=== PATIENT | male | born 1945 | race Two or more races ===

== ENCOUNTER 2023-06-29 06:32 | Day surgery (SDC) | payer OTHER, SELFPAY ==
[2023-06-29] VITALS (7 sets, daily range): BP systolic 12–171; BP diastolic 71–99; BMI 32.3
[2023-06-29] MEDS: NORMOSOL-R 1000 IV (08:15)
== END 2023-06-29 12:24 | disposition home or self-care (01) ==
LOC: SDS 06:32
PROVIDERS: ATTENDING PHYSICIAN Surgery
DX: K64.1 Second degree hemorrhoids (principal)
CPT/HCPCS: 46947; 88304

== ENCOUNTER 2023-10-24 15:46 | Inpatient (IN) | payer OTHER, SELFPAY ==
[2023-10-24] VITALS (7 sets, daily range): BP systolic 101–127; BP diastolic 45–66; BMI 29.2
--- NOTE | 2023-10-24 13:37 | ED.GENMED ---
History of Present Illness
General
Chief Complaint: Weakness
Source: patient
Exam Limitations: none
Time Seen by Provider: 10/24/23 12:32
Nursing documentation reviewed up to this point in time: agreed with
History of Present Illness
History of Present Illness:
pt is a 78 y/o M
h/o PAF (s/p ablations and cardioversions, on eliquis), CAD stents, CHF, GERD, hepa C, previuos anemia (has hd a few transfusinos, was was pre-op total hip replacement 07/2023)
here with suspected anemia, with sypmtoms of fatigue, ALMEIDA, not feeling well
pt says that for about 2 weeks ago he noticed some exertional dyspnea and fatigue and symptoms are workse
went to PCP on 10/16 and had labs; found out today when he called the office that the hg was 8
he feels wosre in the past week
no blood loss that he knows of, no vomiting blood, black stool, chest pain on exertion or rest, fever, chills
Past History
Past History
ED Past Medical History: Arrthythmia, Asthma, CAD, GERD, HTN and Other ( diverticulitis, hep C , IBS jaundiced. chronic cough, Headache, )
ED Past Surgical History: Cardiac (Ablation, stent x 1) and Orthopedic ( right and left Hip replacement, Right shoulder replacement. L and R TKA, Devang carpal tunnel)
Social History
Tobacco: Former smoker
Alcohol: None
Drug: None
Personal:
Living: with family
Employment: Not employed
Family History
Family History: Other (Noncontributory)
Review of Systems
Review of Systems
Allergies reviewed?: Yes
All Other Systems: Not applicable
Phy Exam
Physical Exam
Physical Exam:
GENERAL: Alert , in no apparent distress
EYE: pupils equal and reactive , pale conjunctiva
NECK: Supple
ENT: o/p clr, mmm.
CARDIAC: Regular rate and rhythm .no edema
LUNGS: Clear breath sounds bilaterally, no acute respiratory distress, no wheezes/rales/rhonchi
ABDOMEN: Soft, without focal tenderness, no r/g, no cvat, normal bowel sounds
heme neg brown stool
NEUROLOGICAL: Alert and oriented, no focal neuro deficits
SKIN: Warm and dry, skin intact.
MUSCULOSKELETAL: No edema, well perfused. neg shan's sign
PSYCH: Normal and appropriate interaction.
Course
Orders/Labs/Results
Orders:
Orders
10/24/23 Breakfast
Cholesterol Lowering
At Your Request: Limited Participation
Does patient need a safe tray?: No
Cholesterol Lowering: Sodium, 2 Gram
10/24/23 12:00
Electrocardiogram (*1) Urgent
Reason for Study: Fatigue / Weakness
10/24/23 12:01
EKG- Treatment ONCE
10/24/23 13:09
IV Insert/Care/Rem.- Treatment PRN
10/24/23 13:12
CMP [Comprehensive Metabolic Panel] Urgent
Direct Bilirubin Urgent
Ferritin Urgent
Folate Urgent
Comment: RETIC,DIRECT BILI,LDH,B12,FOL ADDED ON BY FLOOR 2:40PM 10-24-23
Iron Urgent
LDH Urgent
PTT Urgent
Prothrombin Time Urgent
TIBC [Total Iron Binding] Urgent
Vitamin B12 Urgent
10/24/23 13:13
AMARIS Polyspecific GEL Urgent
BBK Wristband Number:
Comment: ADD ON
Type+Screen Urgent
Complete Blood Count/With Diff Urgent
Haptoglobin [S] Routine
NT-proBNP Urgent
Reticulocyte Count Urgent
Troponin I Urgent
10/24/23 13:56
CR Chest - 2 Views Urgent
Comment:
Reason For Exam: sob, fatigue,
10/24/23 14:35
Add On- LAB Urgent
Tests Added?: b12, folate
Blood Bank Products [* Blood Bank Products] Urgent
Blood Bank Products: *Packed RBC Leuko(PRBC's)
Quantity: 2
Transfuse Today: Yes
Reason: Anemia
10/24/23 14:37
Furosemide [Lasix] 40 mg IV NOW STA
10/24/23 14:40
Add On- LAB Routine
Tests Added?: direct bilirubin, LDH, reticulocytes, haptoglobin
10/24/23 15:11
Add On- LAB Routine
Tests Added?: martin, direct AMARIS polyspecific gel
10/24/23 15:17
Add On- LAB Routine
Tests Added?: haptoglobin
10/24/23 15:34
Admit/Transfer Patient As Directed
Co-Sign Provider:
Level of Care: Inpatient admission
Assign to:: Telemetry
Physician / Group: chintan
Diagnosis: hemolytic anemia
Reason for Telemetry: Arrhythmia
Date to Stop Telemetry: 10/27/23
Time to Stop Telemetry: 11:00
Reason for Hospitalization: hemolytic anemia
Expected length of stay greater than two midnights?: Yes
ELOS- Estimated Length of Stay in days: 3
I certify the patient meets the requirements for IP care: Yes
10/24/23 15:40
Code Status As Directed
Resuscitation Status: Full Code
10/24/23 16:36
Acetaminophen [Tylenol] 650 mg PO Q4HPRN PRN
Bisacodyl [Dulcolax] 10 mg RECTAL [id number] PRN
Diazepam [Valium] 15 mg PO BIDPRN PRN
Polyethylene Glycol Powder [Miralax] 17 grams PO DAILYPRN PRN
10/24/23 16:36
HEMATOLOGY CONSULT Routine
Consulting Provider: Carmine Gomez
Was physician already notified: Yes
Activity As Directed
Activity Level: As Tolerated
Intake/ Output As Directed
Frequency: Per unit guidelines
Vital Signs As Directed
Frequency: Per unit guidelines
Weight As Directed
Frequency: Daily
10/24/23 18:00
Gabapentin [Neurontin] 600 mg PO QPM
Montelukast Sodium [Singulair] 10 mg PO QPM
Multivitamin [Theragran] 1 tablet PO QPM
Rosuvastatin Calcium [Crestor] 40 mg PO QPM
10/24/23 20:00
Apixaban [Eliquis] 5 mg PO BID
Ascorbic Acid [Vitamin C] 1,000 mg PO BID
Dicyclomine [Bentyl] 10 mg PO BID
Dofetilide [Tikosyn] 250 mcg PO Q12
Propranolol [Inderal] 20 mg PO BID
Ticagrelor [Brilinta] 90 mg PO BID
10/25/23 07:23
Cardiovascular Evaluation IN AM
Complete Blood Count/No Diff IN AM
Comprehensive Metabolic Panel IN AM
Magnesium IN AM
10/25/23 08:00
Allopurinol [Zyloprim] 100 mg PO DAILY
Celecoxib [Celebrex] 200 mg PO Q48H
Cetirizine HCl [Zyrtec] 10 mg PO DAILY
Furosemide [Lasix] 40 mg PO DAILY
Gabapentin [Neurontin] 300 mg PO DAILY
Lactobac/Bifidobac [Visbiome] 1 cap PO DAILY
Pantoprazole [Protonix] 40 mg PO DAILY
Potassium Chloride [KCl] 10 meq PO DAILY
10/26/23 06:33
Complete Blood Count/No Diff IN AM
10/27/23 06:57
Complete Blood Count/No Diff IN AM
10/27/23 11:00
DC Protocol for Telemetry ONCE
10/28/23 06:00
Complete Blood Count/No Diff IN AM
10/29/23 06:00
Complete Blood Count/No Diff IN AM
Abnormal Lab Results
10/24/23 10/24/23
13:12 13:13
RBC 1.80 L 10^6/uL
(4.70-6.10)
Hgb 5.4 L* g/dL
(13.0-18.0)
Hct 17.7 L* %
(39.0-52.0)
MCV 98.3 H fL
(80.0-94.0)
MCHC 30.5 L g/dL
(33.0-37.0)
RDW 25.4 H %
(11.5-14.5)
Abs Immat Gran (auto) 0.3 H 10^3/uL
(0-0.05)
Absolute Lymphs (auto) 0.7 L 10^3/uL
(1.2-3.4)
Immature Gran % 3.8 H %
(0-0.5)
Neutrophils % 78.1 H %
(42.2-75.2)
Lymphocytes % 9.4 L %
(20.5-51.1)
Retic Count 11.5 H %
(0.4-2.8)
Haptoglobin <10 L mg/dL
(30-200)
PT 17.6 H Sec
(11.4-14.6)
BUN 25 H mg/dl
(9-20)
Glucose 114 H mg/dl
(70-99)
Iron 312 H ug/dl
(49-181)
% Saturation 101 H %
(20-50)
Total Bilirubin 3.3 H mg/dl
(0.2-1.3)
Direct Bilirubin 1.4 H mg/dl
(0.0-0.4)
AST 68 H U/L
(17-59)
Lactate Dehydrogenase 656 H U/L
(120-246)
Folate > 20.0 H ng/ml
(2.76-20)
Antibody Screen Positive A
(Negative)
Direct Antiglob Test Positive A
(Negative)
AMARIS, IgG Specific 3+ H
(Negative)
Crossmatch IS Only See Detail
MTS Gel Crossmatch See Detail
10/24/23 13:13
10/24/23 13:12
Vital Signs
Initial and Last Documented VS:
Initial Vital Signs
Temp Pulse Resp BP Pulse Ox
97.6 F 76 18 113/53 99
10/24/23 11:53 10/24/23 11:53 10/24/23 11:53 10/24/23 11:53 10/24/23 11:53
Last Documented Vital Signs
Temp Pulse Resp BP Pulse Ox
97.8 F 68 18 115/58 98
10/27/23 16:54 10/27/23 16:54 10/27/23 16:54 10/27/23 16:54 10/27/23 16:54
MDM/Problems Addressed
Differential Diagnosis Includes:
anemia, gi bleeidng, hemolysis,
MDM/Problems Addressed:
78 y/o M with h/o CHF, CAD, COPD, GERD
has been having some ongoing anemia which has not been worked up yet
and now with 2 weeks exertional fatigue wores than it was
he is very wiped out with simple activities
no chest pain at rest or with exertion
no black stools
had hg checked last week which was 8
but pt just feels worse and worse
on exam he appears wiped out but has stable vitals
heme neg brown stool
hg concerning down to 5
consented for blood
appers like it could be hemolytic
will require heme consult.
*Critical Care Note
Total Time (30-74mins, 75-104mins- exclusive of procedures): Not Applicable
ED Attending Note
-
Portions of this chart may have been created with voice recognition software.� Occasional wrong word or��sound alike� substitutions may have occurred due to the inherent limitations of voice recognition software.
Discharge Plan
Departure
Patient Disposition: Admit
Date of Disposition: 10/24/23
Time of Disposition: 14:17
Admit to: Telemetry
Presentation/result/management discussed w/ accepting MD/DO: Hospitalist
Patient with high blood pressure during this ER visit?: No
Condition: Fair
Covid-19: Not Applicable
Discharge Problem:
Symptomatic anemia
Interventions
Interventions:
*Risk Screen - Suicide Last Done: 10/24/23 12:40
*General Assessment Last Done: 10/24/23 12:40
*Neglect/Abuse Screening Last Done: 10/24/23 12:40
ED- Fall Risk Assessment Last Done: 10/24/23 12:58
*ED COVID-19 Vaccine History Last Done: 10/24/23 12:40
*Nursing Disposition Last Done: 10/24/23 16:34
ED- Cardiac Assessment Last Done: 10/24/23 12:56
ED- Neurological Assessment Last Done: 10/24/23 12:56
ED- Pulmonary Assessment Last Done: 10/24/23 12:56
Discharge Date and Time
Discharge Date/Time: 10/24/23 16:37
[2023-10-24 13:40] LABS: INR 1.46; PT 17.6 Sec (11.4-14.6)
[2023-10-24 13:41] LABS: ALT (SGPT) 15 U/L (0-50); APTT 32.6 Sec (23.4-35.0); AST (SGOT) 68 U/L (17-59); Albumin 4.5 g/dl (3.5-5.0); Alkaline Phosphatase 105 U/L (38-126); Blood Urea Nitrogen 25 mg/dl (9-20); Calcium 9.5 mg/dl (8.4-10.2); Carbon Dioxide 26 mmol/L (22-30); Chloride 104 mmol/L (98-107); Estimated Creatinine Clearance 58 ml/min; Glucose 114 mg/dl (70-99); Potassium 4.4 mmol/L (3.5-5.1); Sodium 138 mmol/L (135-145); Total Bilirubin 3.3 mg/dl (0.2-1.3); Total Protein 7.8 g/dl (6.3-8.2); eGFR > 60.00
[2023-10-24 13:43] LABS: Iron 312 ug/dl (49-181)
[2023-10-24 13:49] LABS: NT-proBNP 2380 pg/ml
[2023-10-24 13:52] LABS: Percent Saturation 101 % (20-50); Total Iron Binding Capacity 306 ug/dl (261-462)
[2023-10-24 13:52] LABS: Troponin I 0.018 ng/ml
[2023-10-24 14:06] LABS: % Basophils 0.5 % (0-2); % Eosinophils 1.5 % (0-6); % Immature Granulocytes 3.8 % (0-0.5); % Lymphocytes 9.4 % (20.5-51.1); % Monocytes 6.7 % (1.7-9.3); % Neutrophils 78.1 % (42.2-75.2); Absolute Eosinophils 0.1 10^3/uL (0-0.7); Absolute Immature Granulocytes 0.3 10^3/uL (0-0.05); Absolute Lymphocytes 0.7 10^3/uL (1.2-3.4); Absolute Monocytes 0.5 10^3/uL (0.1-0.6); Absolute Neutrophils 5.8 10^3/uL (1.4-6.5); Mean Corp Hgb Conc. 30.5 g/dL (33.0-37.0); Mean Corpuscular Volume 98.3 fL (80.0-94.0); Mean Platelet Volume 9.9 fL (7.4-10.4); Nucleated Red Blood Cells % 1.6 % (-); Platelet Count 194 10^3/uL (130-400); Red Cell Dist. Width 25.4 % (11.5-14.5); White Blood Cell Count 7.4 10^3/uL (4.8-10.8)
[2023-10-24 14:10] LABS: Hematocrit 17.7 % (39.0-52.0); Hemoglobin 5.4 g/dL (13.0-18.0)
[2023-10-24 14:38] LABS: Anisocytosis 2+; Normal RBC Morphology No; Polychromasia Slight
--- NOTE | 2023-10-24 14:39 | HPS.HSE ---
Family Physician
-
Family Physician: Ted Stiles
Chief Complaint
-
sob,weakness, fatigue
History of Present Illness
78 y/o M with PMH for PAF s/p ablations and cardioversions, on eliquis, CAD stents, CHF, GERD, hepatitis C, anemia here with progressive worsening sob, fatigue and weakness for two weeks. sob worse with activity. dizzy when he is walking. he had
blood work on October 16 and his hgb was 8.5. he had cauterization done for hemorrhoids in May and PPH surgery with dr. Muñoz. he noticed tapering bleeding until 6 weeks ago. he has also had an hip revision done on July. his pre op labs showed
anemia for which he received iron transfusion prior to revision. he has received transfusion in the past with hip surgeries in the past. denied black or red stools. denied dysuria or hematuria. denied fever, chills, BARROS, or syncopal episode. denied
chest pain. denied abdominal pain, n,v,d. denied dysuria or hematuria. he takes celebrex 200 every other days. he folllow with GI for colonoscopy. his last colonoscopy was four years ago. 2 polyps were removed that time.
h
Medical History
Past Medical History
Past Medical History: Reports Other
Additional Past Medical History:
chornic hep c
atrial fib
asthma
htn
restrictive lung disease
GERD
RA
CAD
COPD
atrial fib
GERD
esophagitis
CAD
Past Surgical History: Reports Other
Additional Past Surgical History:
b/l carpel tunnel release
b/l Knee replacement
hemorrhoidectomy
b/l total hip replacement
b/l HIp revision
tonsillectomy
right shoulder surgery
cardiac ablation
Social History
Tobacco: Former Smoker
Alcohol: None
Drug: None
Living: With Family
Employment: Retired
Family History
Family History: Not pertinent
Allergies / Home Medications
Allergies reflects when Allergies were last updated in [employer].
Home Medications with original date entered in [employer]
Allergy/Medication List:
Allergies
Allergy/AdvReac Type Severity Reaction Status Date / Time
senna [From Senokot] Allergy Hives Verified 06/29/23 08:17
Home Medications
dicyclomine 10 mg capsule 10 mg PO BID Gastrointestinal issue 11/22/11
sulfasalazine 500 mg tablet (Azulfidine) 1,000 mg PO BID RA 11/22/11
diazepam 5 mg tablet 15 mg PO BIDPRN PRN mild pain 12/09/11
montelukast 10 mg tablet 10 mg PO QPM Lung/breathing issues 04/20/22
omeprazole 20 mg tablet,delayed release 20 mg PO DAILY Gastrointestinal issue 04/20/22
rosuvastatin 40 mg tablet 40 mg PO QPM High cholesterol 04/20/22
ticagrelor 90 mg tablet (Brilinta) 90 mg PO BID Blood clot prevention/tx 04/20/22
apixaban 5 mg tablet (Eliquis) 5 mg PO BID blood clot prevention #60 tabs 04/21/22
potassium chloride 10 mEq tablet,extended release 10 meq PO DAILY Electrolyte Repletion #1 tab 04/22/22
allopurinol 100 mg tablet 100 mg PO DAILY Gout 11/14/22
propranolol 20 mg tablet 20 mg PO BID Blood Pressure 11/14/22
ascorbic acid (vitamin C) 1,000 mg tablet (Vitamin C) 1 g PO BID Supplement 03/08/23
Bifidobacterium infantis 4 mg capsule (Align) 4 mg PO DAILY 06/27/23
celecoxib 200 mg capsule (Celebrex) 200 mg PO Q48H 06/27/23
cetirizine 10 mg tablet (Aller-Zaira) 10 mg PO DAILY 06/27/23
acetaminophen 500 mg tablet 1,000 mg PO BID 06/29/23
acetaminophen 300 mg-codeine 30 mg tablet 1 tab PO DAILYPRN PRN mild pain 10/24/23
dofetilide 250 mcg capsule 250 mcg PO Q12H Arrhythmia 10/24/23
furosemide 40 mg tablet 40 mg PO DAILY 10/24/23
gabapentin 300 mg capsule 300 mg PO DAILY 10/24/23
gabapentin 300 mg capsule 600 mg PO QPM 10/24/23
therapeutic multivitamin 1 tab PO QPM 10/24/23
Review of Systems
-
Constitutional: Reports No Symptoms
EENT: Reports No Symptoms
Respiratory: Reports Trouble Breathing
Cardiac: Reports No Symptoms
Abdomen/GI: Reports No Symptoms
: Reports No Symptoms
Musculoskeletal: Reports No Symptoms
Skin: Reports No Symptoms
Neurological: Reports Dizzy and Weakness
Endocrine: Reports No Symptoms
Hematologic/Lymphatic: Reports No Symptoms
Psych: Reports No Symptoms
Physical Exam
Vital Signs
Vital Signs
Temp Pulse Resp BP Pulse Ox
97.6 F 75 21 113/54 99
10/24/23 11:53 10/24/23 13:15 10/24/23 13:15 10/24/23 12:45 10/24/23 13:15
Physical Exam
General: Well Developed, Well Nourished and No Apparent Distress
HEENT: NormoCephalic, Moist mucous membranes and Atraumatic
Respiratory: Clear
Cardiac: S1/S2 and Regular Rhythm; No Murmur or Rub
GI: Soft, Non Tender, Non Distended and Normal Bowel Sounds; No Organomegaly
Rectal: Deferred by Provider
Musculoskeletal: No Clubbing, No Cyanosis and No Edema
Skin: No Rash
Neuro: AO x 3 and Nonfocal/grossly intact
Psych: Calm
Laboratory Results
-
10/24/23 13:13
10/24/23 13:12
Laboratory Results
PT 17.6 Sec (11.4-14.6) H 10/24/23 13:12
INR 1.46 10/24/23 13:12
APTT 32.6 Sec (23.4-35.0) 10/24/23 13:12
Total Bilirubin 3.3 mg/dl (0.2-1.3) H 10/24/23 13:12
AST 68 U/L (17-59) H 10/24/23 13:12
ALT 15 U/L (0-50) 10/24/23 13:12
Alkaline Phosphatase 105 U/L (38-126) 10/24/23 13:12
Troponin I 0.018 ng/ml 10/24/23 13:13
Data Reviewed
-
Lab Data: Labs Reviewed by me
Impression/Plan
-
#ALMEIDA/fatigue likely from hemolytic anemia
-hgb 5.4
-heme negative stool
-consented for blood transfusion in ER
-two unit of blood transfusion in ER
-trend hgb
-iron 312, % saturation 101, bili 3.3
-direct bili, LDH, reticulocytes hapatoglobin pending.
-hematology consulted
# chronic chf
-not in acute exacerbation
-BNP 2380
-chest x ray pending
-Lasix in ER
-strict I & O
-daily weight
-Lasix continued
-cardiology consulted
#paroxysmal Atrial Fibrillation
�- S/p multiple ablations and cardioversions.
�- EKG with NSR
-Brilinta, Tikosyn, eliquis,propranolol continued
#HLD
-statin continued
#GOUT
-allopurinol continued
#hxt of asthma/restrictive lung disease
-not in acute exacerbation
-Singulair continued
#GERD
-PPI continued
#Rheumatoid Arthritis
�-Azulfidine held
#hxt of CAD
-cardiac stents
#DVT Prophylaxis:� On Eliquis
Code Status:� Full
[2023-10-24 15:28] LABS: Reticulocyte Count 11.5 % (0.4-2.8)
--- NOTE | 2023-10-24 15:47 | W.PN.UPDATE ---
Update Note
Progress Note Update
Patient seen and examined discussed with [employer] Arturo, and I agree with her note.
Gen-AAOx3, NAD
HEENT-NC, AT, anicteric, clear oral mm
Neck-supple
CV-reg, no M, +S1/S2
Lungs-clear B/L
Abd-soft, NT, ND
Ext-no edema
Musculoskeletal-no cyanosis, clubbing
Skin-warm and dry
Neuro-grossly non-focal
Psych-calm, cooperative
Symptomatic anemia -hemoglobin 5.4. Reportedly was 8.0 one week ago. Noted to be 11 in February. No signs or symptoms of bleeding. Patient states that he was treated for bleeding hemorrhoids more than 6 weeks ago, has not bled since.
Concern for hemolysis given elevated bilirubin, serum iron. Check LDH, direct bilirubin, haptoglobin. Check Pauline test. Consult hematology. Transfuse 2 units of blood, Lasix in between.
Persistent atrial fibrillation -continue Eliquis.
CAD -with prior stenting. Continue Brilinta.
Chronic heart failure preserved EF -compensated. Resume furosemide.
COPD without exacerbation
Rheumatoid arthritis -stable, on sulfasalazine. Will hold for now.
Chronic HCV
Mixed hyperlipidemia
NADEEN
Essential hypertension
IBS
Postpolio syndrome
Full code
[2023-10-24 15:51] LABS: Direct Bilirubin 1.4 mg/dl (0.0-0.4); LDH 656 U/L (120-246)
--- NOTE | 2023-10-24 16:31 | CON.ONC ---
Impression
Impression
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
Plan
Plan
Await further studies from blood bank. However, the evidence seems convincing enough I will begin him on prednisone 80 mg daily. It is difficult to say when least incompatible blood may be available.
Patient History
History of Present Illness
Consult from Dr. Vera regarding anemia
This 78-year-old man was admitted with severe anemia. He has noted progressive fatigue and shortness of breath over the last several days. His hematologic history as best I can determine dates back to July of this year when he underwent a total
hip replacement at [facility]. The patient states that he had 3 bags of iron, but our blood bank here says that [facility] says he had 5 units of packed cells. They are double checking with the blood bank, as the patient gives me a
pretty good history of no transfusions. There were crossmatching difficulties, but they apparently could come up with nothing specific. It is unknown whether they did a direct Pauline test. He has been unaware of any bleeding. He has been on
sulfasalazine now for about 15 years for rheumatoid arthritis. He thinks his urine may have been a little darker than normal lately.
Past-Medical/Surgical History
He had hepatitis C from a blood transfusion, apparently completely cleared with Harvoni
Atrial fibrillation
RA
CAD
COPD
Social history: He is retired as a marketing agent. He does not smoke.
Family history is noncontributory.
Patient Medication
�Medication �Instructions �Recorded �Confirmed �Last Taken �Type
dicyclomine 10 mg capsule 10 mg PO BID Gastrointestinal issue 11/22/11 10/24/23 10/24/23 History
sulfasalazine 500 mg tablet 1,000 mg PO BID RA 11/22/11 10/24/23 10/24/23 History
(Azulfidine)
diazepam 5 mg tablet 15 mg PO BIDPRN PRN mild pain 12/09/11 10/24/23 10/19/23 History
montelukast 10 mg tablet 10 mg PO QPM Lung/breathing issues 04/20/22 10/24/23 10/23/23 History
omeprazole 20 mg tablet,delayed 20 mg PO DAILY Gastrointestinal 04/20/22 10/24/23 10/24/23 History
release issue
rosuvastatin 40 mg tablet 40 mg PO QPM High cholesterol 04/20/22 10/24/23 10/23/23 History
ticagrelor 90 mg tablet (Brilinta) 90 mg PO BID Blood clot 04/20/22 10/24/23 10/24/23 History
prevention/tx
apixaban 5 mg tablet (Eliquis) 5 mg PO BID blood clot prevention 04/21/22 10/24/23 10/24/23 Rx
#60 tabs
potassium chloride 10 mEq 10 meq PO DAILY Electrolyte 04/22/22 10/24/23 10/24/23 Rx
tablet,extended release Repletion #1 tab
allopurinol 100 mg tablet 100 mg PO DAILY Gout 11/14/22 10/24/23 10/24/23 History
propranolol 20 mg tablet 20 mg PO BID Blood Pressure 11/14/22 10/24/23 10/24/23 History
ascorbic acid (vitamin C) 1,000 mg 1 g PO BID Supplement 03/08/23 10/24/23 10/24/23 History
tablet (Vitamin C)
Bifidobacterium infantis 4 mg 4 mg PO DAILY 06/27/23 10/24/23 10/24/23 History
capsule (Align)
celecoxib 200 mg capsule (Celebrex) 200 mg PO Q48H 06/27/23 10/24/23 06/25/23 08:00 History
cetirizine 10 mg tablet (Aller-Zaira) 10 mg PO DAILY 06/27/23 10/24/23 10/24/23 History
acetaminophen 500 mg tablet 1,000 mg PO BID 06/29/23 10/24/23 10/24/23 History
acetaminophen 300 mg-codeine 30 mg 1 tab PO DAILYPRN PRN mild pain 10/24/23 10/24/23 10/19/23 History
tablet
dofetilide 250 mcg capsule 250 mcg PO Q12H Arrhythmia 10/24/23 10/24/23 10/24/23 History
furosemide 40 mg tablet 40 mg PO DAILY 10/24/23 10/24/23 10/24/23 History
gabapentin 300 mg capsule 300 mg PO DAILY 10/24/23 10/24/23 10/24/23 History
gabapentin 300 mg capsule 600 mg PO QPM 10/24/23 10/24/23 10/23/23 History
therapeutic multivitamin 1 tab PO QPM 10/24/23 10/24/23 10/23/23 History
Review of Systems
-
All Other Systems: Reviewed and Negative
Physical Exam
Labs
Lab Results
WBC 7.4 10^3/uL (4.8-10.8) 10/24/23 13:13
RBC 1.80 10^6/uL (4.70-6.10) L 10/24/23 13:13
Hgb 5.4 g/dL (13.0-18.0) L* 10/24/23 13:13
Hct 17.7 % (39.0-52.0) L* 10/24/23 13:13
MCV 98.3 fL (80.0-94.0) H 10/24/23 13:13
MCH 30.0 pg (27.0-31.0) 10/24/23 13:13
MCHC 30.5 g/dL (33.0-37.0) L 10/24/23 13:13
RDW 25.4 % (11.5-14.5) H 10/24/23 13:13
Plt Count 194 10^3/uL (130-400) 10/24/23 13:13
MPV 9.9 fL (7.4-10.4) 10/24/23 13:13
Abs Immat Gran (auto) 0.3 10^3/uL (0-0.05) H 10/24/23 13:13
Absolute Neuts (auto) 5.8 10^3/uL (1.4-6.5) 10/24/23 13:13
Absolute Lymphs (auto) 0.7 10^3/uL (1.2-3.4) L 10/24/23 13:13
Absolute Monos (auto) 0.5 10^3/uL (0.1-0.6) 10/24/23 13:13
Absolute Eos (auto) 0.1 10^3/uL (0-0.7) 10/24/23 13:13
Absolute Basos (auto) 0.0 10^3/uL (0-0.2) 10/24/23 13:13
Immature Gran % 3.8 % (0-0.5) H 10/24/23 13:13
Neutrophils % 78.1 % (42.2-75.2) H 10/24/23 13:13
Lymphocytes % 9.4 % (20.5-51.1) L 10/24/23 13:13
Monocytes % 6.7 % (1.7-9.3) 10/24/23 13:13
Eosinophils % 1.5 % (0-6) 10/24/23 13:13
Basophils % 0.5 % (0-2) 10/24/23 13:13
Creatinine 1.0 mg/dL (0.7-1.3) 10/24/23 13:12
Vital Signs
Vital Signs
Temp Pulse Resp BP Pulse Ox
97.6 F 82 18 123/45 99
10/24/23 11:53 10/24/23 16:15 10/24/23 16:15 10/24/23 16:00 10/24/23 16:15
[2023-10-24 17:03] LABS: Folate > 20.0 ng/ml (2.76-20); Vitamin B12 560 pg/ml (239-931)
[2023-10-24] MEDS: NEURONTIN 600 MG PO (17:50)
[2023-10-24] MEDS: THERAGRAN 1 TABLET PO (17:50)
[2023-10-24] MEDS: SINGULAIR 10 MG PO (17:50)
[2023-10-24] MEDS: CRESTOR 40 MG PO (17:50)
[2023-10-24] MEDS: INDERAL 20 MG PO (20:10)
[2023-10-24] MEDS: TIKOSYN 250 MCG PO (20:10)
[2023-10-24] MEDS: BRILINTA 90 MG PO (20:11)
[2023-10-24] MEDS: BENTYL 10 MG PO (20:11)
[2023-10-24] MEDS: VITAMIN C 1000 MG PO (20:13)
[2023-10-24] MEDS: ELIQUIS 5 MG PO (20:13)
[2023-10-24] MEDS: TYLENOL 1000 MG PO (20:14)
[2023-10-25] VITALS (7 sets, daily range): BP systolic 89–132; BP diastolic 47–65; BMI 29.0
[2023-10-25] MEDS: INDERAL 20 MG PO ×2 (08:18→20:23)
[2023-10-25] MEDS: BENTYL 10 MG PO ×2 (08:18→20:22)
[2023-10-25] MEDS: ZYLOPRIM 100 MG PO (08:18)
[2023-10-25] MEDS: CELEBREX 200 MG PO (08:18)
[2023-10-25] MEDS: ZYRTEC 10 MG PO (08:18)
[2023-10-25] MEDS: BRILINTA 90 MG PO ×2 (08:18→20:22)
[2023-10-25] MEDS: TIKOSYN 250 MCG PO ×2 (08:19→20:23)
[2023-10-25] MEDS: TYLENOL 1000 MG PO ×2 (08:19→20:22)
[2023-10-25] MEDS: ELIQUIS 5 MG PO ×2 (08:19→20:23)
[2023-10-25] MEDS: VITAMIN C 1000 MG PO ×2 (08:19→20:22)
[2023-10-25] MEDS: VISBIOME 1 CAP PO (08:19)
[2023-10-25] MEDS: PROTONIX 40 MG PO (08:19)
[2023-10-25] MEDS: NEURONTIN 300 MG PO (08:19)
[2023-10-25] MEDS: DELTASONE 80 MG PO (08:20)
[2023-10-25] MEDS: LASIX 40 MG PO (08:20)
[2023-10-25] MEDS: KCL 10 MEQ PO (08:20)
[2023-10-25 08:37] LABS: Mean Corp Hgb Conc. 30.2 g/dL (33.0-37.0); Mean Corpuscular Hgb 30.1 pg (27.0-31.0); Mean Corpuscular Volume 99.4 fL (80.0-94.0); Platelet Count 188 10^3/uL (130-400); Red Blood Cell Count 1.63 10^6/uL (4.70-6.10); Red Cell Dist. Width 27.3 % (11.5-14.5); White Blood Cell Count 5.6 10^3/uL (4.8-10.8)
[2023-10-25 08:41] LABS: Hematocrit 16.2 % (39.0-52.0); Hemoglobin 4.9 g/dL (13.0-18.0)
--- NOTE | 2023-10-25 08:51 | PTCARENOTE ---
Hgb this am 4.9; Chuy Johnson notified.
[2023-10-25 09:07] LABS: ALT (SGPT) 13 U/L (0-50); AST (SGOT) 54 U/L (17-59); Alkaline Phosphatase 114 U/L (38-126); Blood Urea Nitrogen 24 mg/dl (9-20); Calcium 9.6 mg/dl (8.4-10.2); Carbon Dioxide 24 mmol/L (22-30); Chloride 106 mmol/L (98-107); Estimated Creatinine Clearance 58 ml/min; Glucose 117 mg/dl (70-99); HDL Cholesterol 25 mg/dl; LDL Cholesterol, Calculated 19 mg/dl; Potassium 3.9 mmol/L (3.5-5.1); Sodium 140 mmol/L (135-145); Total Bilirubin 2.7 mg/dl (0.2-1.3); Total Cholesterol 78 mg/dl (50-199); Total Protein 7.3 g/dl (6.3-8.2); Triglyceride 173 mg/dl (10-149); Very Low Density Lipoprotein 34 mg/dl (0-30); eGFR > 60.00
--- NOTE | 2023-10-25 09:41 | W.PN.HOSP.TC ---
Today's Communication/Plan
-
Transfuse
Assessment / Plan
Assessment / Plan
Gen-AAOx3, NAD
HEENT-NC, AT, anicteric, clear oral mm
Neck-supple
CV-reg, no M, +S1/S2
Lungs-clear B/L
Abd-soft, NT, ND
Ext-no edema
Musculoskeletal-no cyanosis, clubbing
Skin-warm and dry
Neuro-grossly non-focal
Psych-calm, cooperative
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 Unclear if related to RA versus sulfasalazine versus other causes. Haptoglobin pending. Appreciate hematology input. Prednisone started. Awaiting transfusion, [place] to
send in blood today.
Hemoglobin 4.9 this morning.
Persistent atrial fibrillation -continue Eliquis.
CAD -with prior stenting. Continue Brilinta.
Chronic heart failure preserved EF -compensated. Resume furosemide.
COPD without exacerbation
Rheumatoid arthritis -stable, on sulfasalazine. Will hold for now.
Chronic HCV
Mixed hyperlipidemia
NADEEN
Essential hypertension
IBS
Postpolio syndrome
Full code
Anticipated Discharge: > 48 hours
Subjective/Interval History
-
Date of Service: October 25, 2023
Patient seen and examined. No new complaints.
Objective Data
-
Labs:
Laboratory Results
10/25/23
07:23
WBC 5.6
Hgb 4.9 L*
Hct 16.2 L*
Plt Count 188
Sodium 140
Potassium 3.9
Chloride 106
Carbon Dioxide 24
BUN 24 H
Creatinine 1.0
Glucose 117 H
Calcium 9.6
Total Bilirubin 2.7 H
AST 54
ALT 13
Alkaline Phosphatase 114
Vital Signs:
Vital Signs
Temp Pulse Resp BP Pulse Ox
98.5 F 82 18 111/55 100
10/25/23 07:50 10/25/23 08:20 10/25/23 07:50 10/25/23 08:20 10/25/23 08:10
I&O
10/24/23 10/25/23 10/26/23
06:59 06:59 06:59
Intake Total 480 / 480
Output Total 1200 / 1200
Balance -720 / -720
Review of Systems
-
History Source: Patient
All other systems: Reviewed and negative
--- NOTE | 2023-10-25 10:29 | W.PN.UPDATE ---
Update Note
Progress Note Update
Patient off the floor for Abd US to evaluate poss hepatomegaly.
Daughter in room.
Blood from [place] should arrive today for transfusion.
+Pauline, elevated bilirubin/retic count all suggest AIHA. Hapto pending
Will check flow cytometry and HCV quant. H/o treated HCV w/ Nely ~10 yrs ago, reportedly cured.
Monitor CBC daily
Continue Prednisone 80md/d w/ GI ppx
Will follow
--- NOTE | 2023-10-25 16:38 | PTCARENOTE ---
Pt AAO x3, RON; stands at bedside to transfer with assist x1/walker, tires easily/very weak. refused OOB to chair activity. VSS. Telemetry:NSR with [facility]. On room air- pulse ox 98%, no c/o SOB. Abd large, soft, parisa PO; appetite fair. Voids zeke
urine in urinal. Pale; afebrile; W/D/I. Resting in bed at present. Pt awaiting availability of PRC's for transfusion. Will continue to monitor.
[2023-10-25] MEDS: SINGULAIR 10 MG PO (17:40)
[2023-10-25] MEDS: NEURONTIN 600 MG PO (17:40)
[2023-10-25] MEDS: THERAGRAN 1 TABLET PO (17:40)
[2023-10-25] MEDS: CRESTOR 40 MG PO (17:40)
[2023-10-26] VITALS (13 sets, daily range): BP systolic 101–135; BP diastolic 52–67; BMI 28.9
[2023-10-26 07:56] LABS: Mean Corp Hgb Conc. 29.4 g/dL (33.0-37.0); Mean Corpuscular Hgb 30.1 pg (27.0-31.0); Mean Corpuscular Volume 102.3 fL (80.0-94.0); Platelet Count 195 10^3/uL (130-400); Red Blood Cell Count 1.73 10^6/uL (4.70-6.10); Red Cell Dist. Width 28.9 % (11.5-14.5); White Blood Cell Count 6.9 10^3/uL (4.8-10.8)
[2023-10-26 08:02] LABS: Hemoglobin 5.2 g/dL (13.0-18.0)
[2023-10-26 08:04] LABS: Hematocrit 17.7 % (39.0-52.0)
[2023-10-26] MEDS: TIKOSYN 250 MCG PO ×2 (08:23→19:46)
[2023-10-26] MEDS: BRILINTA 90 MG PO ×2 (08:23→19:46)
[2023-10-26] MEDS: TYLENOL 1000 MG PO ×2 (08:23→19:46)
[2023-10-26] MEDS: VISBIOME 1 CAP PO (08:23)
[2023-10-26] MEDS: NEURONTIN 300 MG PO (08:23)
[2023-10-26] MEDS: INDERAL 20 MG PO ×2 (08:24→19:47)
[2023-10-26] MEDS: BENTYL 10 MG PO ×2 (08:24→19:47)
[2023-10-26] MEDS: LASIX 40 MG PO (08:24)
[2023-10-26] MEDS: PROTONIX 40 MG PO (08:24)
[2023-10-26] MEDS: ELIQUIS 5 MG PO ×2 (08:24→19:47)
[2023-10-26] MEDS: KCL 10 MEQ PO (08:24)
[2023-10-26] MEDS: ZYLOPRIM 100 MG PO (08:24)
[2023-10-26] MEDS: VITAMIN C 1000 MG PO ×2 (08:24→19:46)
[2023-10-26] MEDS: ZYRTEC 10 MG PO (08:25)
--- NOTE | 2023-10-26 08:27 | W.PN.HOSP.TC ---
Today's Communication/Plan
-
Await transfusion
Assessment / Plan
Assessment / Plan
Gen-AAOx3, NAD
HEENT-NC, AT, anicteric, clear oral mm
Neck-supple
CV-reg, no M, +S1/S2
Lungs-clear B/L
Abd-soft, NT, ND
Ext-no edema
Musculoskeletal-no cyanosis, clubbing
Skin-warm and dry
Neuro-grossly non-focal
Psych-calm, cooperative
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 Unclear if related to RA versus sulfasalazine versus other causes. Haptoglobin pending. Appreciate hematology input. Prednisone started. Awaiting transfusion, [facility]
having a hard time finding compatible blood as patient has multiple antibodies.
Hemoglobin 5.2 this morning.
Persistent atrial fibrillation -continue Eliquis.
CAD -with prior stenting. Continue Brilinta.
Chronic heart failure preserved EF -compensated. Resume furosemide.
COPD without exacerbation
Rheumatoid arthritis -stable, on sulfasalazine. Will hold for now.
Chronic HCV -HCV RNA sent.
Mixed hyperlipidemia
NADEEN
Essential hypertension
IBS
Postpolio syndrome
Full code
Anticipated Discharge: > 48 hours
Subjective/Interval History
-
Date of Service: October 26, 2023
Patient seen and examined. No new complaints.
Objective Data
-
Labs:
Laboratory Results
10/26/23
06:33
WBC 6.9
Hgb 5.2 L*
Hct 17.7 L*
Plt Count 195
Vital Signs:
Vital Signs
Temp Pulse Resp BP Pulse Ox
98.5 F 76 16 114/56 97
10/26/23 07:00 10/26/23 07:00 10/26/23 07:00 10/26/23 07:00 10/26/23 07:00
I&O
10/25/23 10/26/23 10/27/23
06:59 06:59 06:59
Intake Total 480 / 480 640 / 640
Output Total 1200 / 1200 825 / 825
Balance -720 / -720 -185 / -185
Review of Systems
-
History Source: Patient
All other systems: Reviewed and negative
[2023-10-26] MEDS: DELTASONE 80 MG PO (09:13)
--- NOTE | 2023-10-26 12:01 | W.PN.ONC2 ---
Today's Communication / Plan
-
- continue high dose prednisone.
- plan for rituxan on 10/26.
Impression
Impression
Warm autoimmune hemolytic anemia
hx of hepatitis C s/p Harvoni
Plan
Plan
- work-up consistent with AIHA with AMARIS+ IgG 3+, elevated retic count, LDH and T bili. Suspect element of baseline hgb was present prior to hemolytic process with recent bleeding events over past ~ 5 months of rectal bleeding s/p hemorrhoid surgery
in june and post-op bleeding after hip surgery in July.
- 1 unit prbCs ordered however due to Ab awaiting match.
- started on prednisone 80 mg daily on 10/24, s/p 2nd dose today. Continue at current dose until Hgb > 10.0 g/dl then will plan for slow taper.
- Due to severity of anemia and other comorbidities recommend initiation of Rituxan to expedite RBC recovery and improve duration of response. Discussed with pharmacy, will arrange to receive Rituxan 375 mg/m2 (750 mg) on 10/26 with plan to continue
outpt weekly x 4 in addition to steroids.
- hepatitis B screening ordered.
- continue to monitor CBC, retic, LDH daily.
Subjective/Objective
Chief Complaint
AIHA
Subjective
pt notes continued fatigued. Denies chest pain, SOB. Hgb today 5.2 g/dl.
Vital Signs:
Vital Signs
Temp Pulse Resp BP Pulse Ox
98.7 F 70 16 101/52 97
10/26/23 11:00 10/26/23 11:00 10/26/23 11:00 10/26/23 11:00 10/26/23 11:00
Lab Results:
Laboratory Data
WBC 6.9 10^3/uL (4.8-10.8) 10/26/23 06:33
Hgb 5.2 g/dL (13.0-18.0) L* 10/26/23 06:33
Plt Count 195 10^3/uL (130-400) 10/26/23 06:33
PT 17.6 Sec (11.4-14.6) H 10/24/23 13:12
INR 1.46 10/24/23 13:12
APTT 32.6 Sec (23.4-35.0) 10/24/23 13:12
eGFR > 60.00 10/25/23 07:23
Physical Exam
HEENT: Jaundice
Cardiology: Normal Sinus Rhythm
Pulmonary: Clear
Extremities: No Edema
Neuro: Non Focal
Review of Systems
Review of Systems
Constitutional: Reports Fatigue; Denies Fever
Respiratory: Denies Dyspnea
Cardiovascular: Denies Chest Pain
Skin: Denies Rash
Orders
Orders
Orders From Last 24 Hours
10/26/23 09:36
Stool for occult blood [Hemetest Stools] As Directed
[2023-10-26] MEDS: FOLVITE 1 MG PO (12:03)
--- NOTE | 2023-10-26 14:31 | CM ---
Patient seen at bedside, IA completed.
Patient lives in an in-law suite with a first floor set up, no steps to enter. Patients daughter, son-in-law, and two grandchildren live next door. Patient is know to [facility] in the remote past, has no DME.
PCP: Ted Stiles
Pharm: [facility].
CM will continue to follow for discharge planning needs.
[2023-10-26] MEDS: NEURONTIN 600 MG PO (17:56)
[2023-10-26] MEDS: THERAGRAN 1 TABLET PO (17:56)
[2023-10-26] MEDS: CRESTOR 40 MG PO (17:57)
[2023-10-26] MEDS: SINGULAIR 10 MG PO (17:57)
--- NOTE | 2023-10-26 18:39 | PTCARENOTE ---
Received patient this am AAOx3. HGB 5.[address] Vera made aware. Pt transfused with 1 unit Of PRBC's and second unit started. Tolerated diet well. Offered no complaints. Report given to 3W RN and patient transferred.
[2023-10-27] VITALS (13 sets, daily range): BP systolic 103–130; BP diastolic 53–65; BMI 28.2
[2023-10-27] LABS: Hemoglobin 7.5 g/dL (13.0-18.0)
[2023-10-27 00:01] LABS: Hematocrit 20.1 % (39.0-52.0)
[2023-10-27] MEDS: CELEBREX 200 MG PO (08:47)
[2023-10-27] MEDS: NEURONTIN 300 MG PO (08:47)
[2023-10-27] MEDS: PROTONIX 40 MG PO (08:47)
[2023-10-27] MEDS: DELTASONE 80 MG PO (08:47)
[2023-10-27] MEDS: TIKOSYN 250 MCG PO ×2 (08:47→19:46)
[2023-10-27] MEDS: BENTYL 10 MG PO ×2 (08:48→19:46)
[2023-10-27] MEDS: LASIX 40 MG PO (08:48)
[2023-10-27] MEDS: KCL 10 MEQ PO (08:48)
[2023-10-27] MEDS: BRILINTA 90 MG PO ×2 (08:48→19:45)
[2023-10-27] MEDS: TYLENOL 1000 MG PO ×3 (08:48→19:46)
[2023-10-27] MEDS: VISBIOME 1 CAP PO (08:49)
[2023-10-27] MEDS: ZYLOPRIM 100 MG PO (08:49)
[2023-10-27] MEDS: FOLVITE 1 MG PO (08:49)
[2023-10-27] MEDS: INDERAL 20 MG PO ×2 (08:49→19:45)
[2023-10-27] MEDS: ELIQUIS 5 MG PO ×2 (08:49→19:45)
[2023-10-27] MEDS: VITAMIN C 1000 MG PO ×2 (08:50→19:46)
[2023-10-27] MEDS: ZYRTEC 10 MG PO (08:50)
--- NOTE | 2023-10-27 08:53 | CM ---
Late note from 10/26/2023: Call received late 10/26/2023 from Mart's daughter who advised she and her family are going to [facility] on 10/27/2023. He lives in an inlaw suite in their home and is typically (I) amb and adls, has a RW. She
was looking for resources to help her father when he is discharged since [place].
Daughter advised that her father will not agree to SNF. He is known to [facility] in the past.
CM provided options of hiring private pay supervisor compressed yeast and offered to provide list of same for her to review and contact if interested, skilled home care services, [employer] or [employer] for transportation if needed for appointments.
Daughter inquired about free services for transportation; advised that [facility] could be an option, however application/registration is needed prior to starting services and will not likely be able to access in time for their trip.
Plan: Patient transferred to [facility]; case reviewed with CM for that unit for continuation of d/c planning with pt and daughter.
[2023-10-27 09:28] LABS: Hematocrit 25.1 % (39.0-52.0); Hemoglobin 7.8 g/dL (13.0-18.0); Mean Corp Hgb Conc. 31.1 g/dL (33.0-37.0); Mean Corpuscular Hgb 30.6 pg (27.0-31.0); Mean Corpuscular Volume 98.4 fL (80.0-94.0); Mean Platelet Volume 9.7 fL (7.4-10.4); Platelet Count 173 10^3/uL (130-400); Red Blood Cell Count 2.55 10^6/uL (4.70-6.10); Red Cell Dist. Width 26.5 % (11.5-14.5); White Blood Cell Count 6.9 10^3/uL (4.8-10.8)
[2023-10-27 10:50] LABS: Hepatitis B Surface Antigen Negative (Negative)
--- NOTE | 2023-10-27 10:54 | W.PN.HOSP.TC ---
Today's Communication/Plan
-
CBC in the morning.
Assessment / Plan
Assessment / Plan
Gen-AAOx3, NAD
HEENT-NC, AT, anicteric, clear oral mm
Neck-supple
CV-reg, no M, +S1/S2
Lungs-clear B/L
Abd-soft, NT, ND
Ext-no edema
Musculoskeletal-no cyanosis, clubbing
Skin-warm and dry
Neuro-grossly non-focal
Psych-calm, cooperative
Autoimmune hemolytic anemia -warm antibody. Transfused 2 units, hemoglobin improved to 7.8 today. To get Rituxan today per hematology. Prednisone 80 mg daily. CBC in the morning.
Suspect he has baseline chronic anemia of multifactorial etiology and now has acute anemia due to AIHA.
Persistent atrial fibrillation -continue Eliquis.
CAD -with prior stenting. Continue Brilinta.
Chronic heart failure preserved EF -compensated. Resume furosemide.
COPD without exacerbation
Rheumatoid arthritis -stable, on sulfasalazine. Will hold for now.
Chronic HCV -HCV RNA sent.
Mixed hyperlipidemia
NADEEN
Essential hypertension -stable.
IBS
Postpolio syndrome
Full code
Updated daughter at the bedside. She is eager to take her dad home this weekend.
Anticipated Discharge: 24 - 48 hours
Subjective/Interval History
-
Date of Service: October 27, 2023
Patient seen and examined. Feeling better after transfusion. No complaints.
Objective Data
-
Labs:
Laboratory Results
10/26/23 10/27/23
23:46 06:57
WBC 6.9
Hgb 7.5 L D 7.8 L
Hct 20.1 L* 25.1 L
Plt Count 173
Vital Signs:
Vital Signs
Temp Pulse Resp BP Pulse Ox
98.2 F 68 16 118/64 99
10/27/23 07:59 10/27/23 07:59 10/27/23 07:59 10/27/23 07:59 10/27/23 07:59
I&O
10/26/23 10/27/23 10/28/23
06:59 06:59 06:59
Intake Total 640 / 640 1460 / 1460
Output Total 825 / 825 1450 / 1450
Balance -185 / -185
Review of Systems
-
History Source: Patient
All other systems: Reviewed and negative
[2023-10-27 11:08] LABS: Hepatitis B Core Ab, Total Negative (Negative); Hepatitis B Surface Antibody Negative
[2023-10-27 11:24] LABS: Haptoglobin <10 mg/dL (30-200)
[2023-10-27] MEDS: BENADRYL 50 MG PO (11:25)
[2023-10-27] MEDS: RITUXAN 250 MG IV ×2 (12:38)
--- NOTE | 2023-10-27 16:53 | PTCARENOTE ---
Rituxan infused as ordered via R wrist PIV. Patient tolerated well with no s/s infusion reaction. VSS throughout infusion.
[2023-10-27] MEDS: NEURONTIN 600 MG PO (18:10)
[2023-10-27] MEDS: THERAGRAN 1 TABLET PO (18:10)
[2023-10-27] MEDS: SINGULAIR 10 MG PO (18:10)
[2023-10-27] MEDS: CRESTOR 40 MG PO (18:11)
--- NOTE | 2023-10-27 23:00 | PTCARENOTE ---
Assumed care of pt from previous nurse. Pt denies pain. Pt is on tele running nsr, bbb, prolonged qt. pt call sousa is within reach, pt rings petty. will cont to monitor.
[2023-10-28 03:37] VITALS: BP 138/66
[2023-10-28 03:56] LABS: HCV Quant by NAAT IU/mL Not Detected; HCV Quant by NAAT Interp Not Detected (Not Detected); HCV Quant by NAAT Log IU/mL Not Detected log IU/mL
[2023-10-28 06:00] VITALS: BMI 28.2
[2023-10-28 07:00] VITALS: BP 145/81
[2023-10-28 08:21] LABS: Number Of Markers 26 markers; Source Blood
[2023-10-28] MEDS: NEURONTIN 300 MG PO (08:38)
[2023-10-28] MEDS: PROTONIX 40 MG PO (08:38)
[2023-10-28] MEDS: VITAMIN C 1000 MG PO (08:39)
[2023-10-28] MEDS: ELIQUIS 5 MG PO (08:39)
[2023-10-28] MEDS: LASIX 40 MG PO (08:39)
[2023-10-28] MEDS: TIKOSYN 250 MCG PO (08:39)
[2023-10-28] MEDS: TYLENOL 1000 MG PO (08:39)
[2023-10-28] MEDS: DELTASONE 80 MG PO (08:39)
[2023-10-28] MEDS: FOLVITE 1 MG PO (08:39)
[2023-10-28] MEDS: KCL 10 MEQ PO (08:40)
[2023-10-28] MEDS: VISBIOME 1 CAP PO (08:40)
[2023-10-28] MEDS: BENTYL 10 MG PO (08:40)
[2023-10-28] MEDS: ZYLOPRIM 100 MG PO (08:42)
[2023-10-28] MEDS: ZYRTEC 10 MG PO (08:42)
[2023-10-28] MEDS: BRILINTA 90 MG PO (08:43)
[2023-10-28] MEDS: INDERAL 20 MG PO (08:46)
[2023-10-28 11:00] VITALS: BP 125/54
[2023-10-28 11:10] LABS: Hematocrit 28.3 % (39.0-52.0); Hemoglobin 8.7 g/dL (13.0-18.0); Mean Corp Hgb Conc. 30.7 g/dL (33.0-37.0); Mean Corpuscular Hgb 31.1 pg (27.0-31.0); Mean Corpuscular Volume 101.1 fL (80.0-94.0); Mean Platelet Volume 9.8 fL (7.4-10.4); Platelet Count 175 10^3/uL (130-400); Red Cell Dist. Width 27.3 % (11.5-14.5)
--- NOTE | 2023-10-28 11:26 | W.PN.ONC ---
Today's Communication / Plan
-
s/p Rituxan 10/26
Await am CBC and CMP
Watch glucose on Prednisone, no CMP since 10/25/23, ordered for this am along w/ accuchecks
If hgb stable and no significant hyperglycemia, okay for discharge on Prednisone 60mg/d, plus PPI and folic acid. Please send w/ order for CBC w/ diff and CMP to be done in 2-4 days
Has f/u with Dr. Negro on 11/02 at 8:30 am for next dose of Rituxan
Impression
Impression
Warm autoimmune hemolytic anemia, started Pred 80mg/d on 10/24, Rituxan #1 on 10/26
hx of hepatitis C s/p Harvoni; HVC DNA not detectable
Flow cytometry negative
Plan
Plan
s/p Rituxan 10/26
Await am CBC and CMP
Watch glucose on Prednisone, no CMP since 10/25/23, ordered for this am along w/ accuchecks
If hgb stable and no significant hyperglycemia, okay for discharge on Prednisone 60mg/d, plus PPI and folic acid. Please send w/ order for CBC w/ diff and CMP to be done in 2-4 days
Has f/u with Dr. Negro on 11/02 at 8:30 am for next dose of Rituxan
Subjective/Objective
Subjective/Objective
Eager to go home today, tolerated Rituxan without incident
Vital Signs:
Vital Signs
Temp Pulse Resp BP Pulse Ox
97.6 F 73 16 145/81 100
10/28/23 07:00 10/28/23 07:00 10/28/23 07:00 10/28/23 07:00 10/28/23 07:00
Lab Results:
Laboratory Data
WBC 6.0 10^3/uL (4.8-10.8) 10/28/23 08:36
Hgb 8.7 g/dL (13.0-18.0) L 10/28/23 08:36
Plt Count 175 10^3/uL (130-400) 10/28/23 08:36
PT 17.6 Sec (11.4-14.6) H 10/24/23 13:12
INR 1.46 10/24/23 13:12
APTT 32.6 Sec (23.4-35.0) 10/24/23 13:12
eGFR > 60.00 10/25/23 07:23
Orders
Orders
Orders From Last 24 Hours
10/28/23 10:32
Accucheck [Bedside Glucose Monitoring] As Directed
10/28/23 10:33
CMP [Comprehensive Metabolic Panel] Routine
10/29/23 06:00
CMP [Comprehensive Metabolic Panel] IN AM
[2023-10-28 11:46] LABS: Glucose - Point of Care 155 mg/dl (70-99)
--- NOTE | 2023-10-28 11:53 | W.PN.HOSP.TC ---
Today's Communication/Plan
-
Discharge
Assessment / Plan
Assessment / Plan
Gen-AAOx3, NAD
HEENT-NC, AT, anicteric, clear oral mm
Neck-supple
CV-reg, no M, +S1/S2
Lungs-clear B/L
Abd-soft, NT, ND
Ext-no edema
Musculoskeletal-no cyanosis, clubbing
Skin-warm and dry
Neuro-grossly non-focal
Psych-calm, cooperative
Autoimmune hemolytic anemia -warm antibody. Transfused 2 units, hemoglobin improved to 8.7 today. Received a dose of Rituxan yesterday. Next dose on 11/02 per hematology.
Suspect he has baseline chronic anemia of multifactorial etiology and now has acute anemia due to AIHA.
Can discharge today on prednisone 60 mg daily along with folic acid. Outpatient hematology follow-up.
Persistent atrial fibrillation -continue Eliquis.
CAD -with prior stenting. Continue Brilinta.
Chronic heart failure preserved EF -compensated. Continue furosemide.
COPD without exacerbation
Rheumatoid arthritis -stable, resume sulfasalazine.
Chronic HCV -HCV RNA sent.
Mixed hyperlipidemia
NADEEN
Essential hypertension -stable.
IBS
Postpolio syndrome
Full code
Dispo -medically stable for discharge today. Outpatient follow-up. I left a lab slip for CBC, CMP on October 30.
35 minutes spent in discharge process.
Updated daughter at the bedside. .
Anticipated Discharge: Today
Subjective/Interval History
-
Date of Service: October 28, 2023
Patient seen and examined. Feeling much better. No complaints.
Objective Data
-
Labs:
Laboratory Results
10/28/23 10/28/23
08:36 11:26
WBC 6.0
Hgb 8.7 L
Hct 28.3 L
Plt Count 175
Sodium Pending
Potassium Pending
Chloride Pending
Carbon Dioxide Pending
BUN Pending
Creatinine Pending
Glucose Pending
Calcium Pending
Total Bilirubin Pending
AST Pending
ALT Pending
Alkaline Phosphatase Pending
Vital Signs:
Vital Signs
Temp Pulse Resp BP Pulse Ox
97.6 F 73 16 145/81 100
10/28/23 07:00 10/28/23 07:00 10/28/23 07:00 10/28/23 07:00 10/28/23 07:00
I&O
10/27/23 10/28/23 10/29/23
06:59 06:59 06:59
Intake Total 1460 / 1460 1200 / 1200
Output Total 1450 / 1450 500 / 500
Balance 10 / 10 700 / 700
Review of Systems
-
History Source: Patient
All other systems: Reviewed and negative
--- NOTE | 2023-10-28 11:53 | W.DS.TRANS ---
DC Summary - Photo Technologist
-
Discharge Instructions:
Discharge Diagnosis/Procedures Autoimmune hemolytic anemia
Diet Low Cholesterol,Low Fat,2 Gram Sodium
Activity As tolerated
Driving Restrictions As prior to admission
Bathing Restrictions None
Blood Work CBC, CMP on October 30
Instructions:
Stand-Alone Forms:
Changes to Home Medications: No
Discharge Medications:
DC Medications w/original date entered in [facility]
dicyclomine 10 mg capsule 10 mg PO BID Gastrointestinal issue 11/22/11
sulfasalazine 500 mg tablet (Azulfidine) 1,000 mg PO BID RA 11/22/11
diazepam 5 mg tablet 15 mg PO BIDPRN PRN mild pain 12/09/11
montelukast 10 mg tablet 10 mg PO QPM Lung/breathing issues 04/20/22
omeprazole 20 mg tablet,delayed release 20 mg PO DAILY Gastrointestinal issue 04/20/22
rosuvastatin 40 mg tablet 40 mg PO QPM High cholesterol 04/20/22
ticagrelor 90 mg tablet (Brilinta) 90 mg PO BID Blood clot prevention/tx 04/20/22
apixaban 5 mg tablet (Eliquis) 5 mg PO BID blood clot prevention #60 tabs 04/21/22
potassium chloride 10 mEq tablet,extended release 10 meq PO DAILY Electrolyte Repletion #1 tab 04/22/22
allopurinol 100 mg tablet 100 mg PO DAILY Gout 11/14/22
propranolol 20 mg tablet 20 mg PO BID Blood Pressure 11/14/22
ascorbic acid (vitamin C) 1,000 mg tablet (Vitamin C) 1 g PO BID Supplement 03/08/23
Bifidobacterium infantis 4 mg capsule (Align) 4 mg PO DAILY probiotic 06/27/23
celecoxib 200 mg capsule (Celebrex) 200 mg PO Q48H pain 06/27/23
cetirizine 10 mg tablet (Aller-Zaira) 10 mg PO DAILY allergies 06/27/23
acetaminophen 500 mg tablet 1,000 mg PO BID pain 06/29/23
dofetilide 250 mcg capsule 250 mcg PO Q12H Arrhythmia 10/24/23
furosemide 40 mg tablet 40 mg PO DAILY Fluid Retention/Swelling 10/24/23
gabapentin 300 mg capsule 300 mg PO DAILY pain 10/24/23
gabapentin 300 mg capsule 600 mg PO QPM pain 10/24/23
therapeutic multivitamin 1 tab PO QPM supplement 10/24/23
folic acid 1 mg tablet 1 mg PO DAILY #30 tabs 10/28/23
polyethylene glycol 3350 17 gram oral powder packet (HealthyLax) 17 g PO DAILYPRN PRN constipation #0 ea 10/28/23
prednisone 20 mg tablet 60 mg (3 x 20 mg) PO DAILY #60 tabs 10/28/23
Home Medication Changes
Pending Results: No
[2023-10-28 11:54] LABS: ALT (SGPT) 22 U/L (0-50); AST (SGOT) 49 U/L (17-59); Albumin 4.6 g/dl (3.5-5.0); Alkaline Phosphatase 121 U/L (38-126); Blood Urea Nitrogen 21 mg/dl (9-20); Calcium 9.5 mg/dl (8.4-10.2); Carbon Dioxide 22 mmol/L (22-30); Chloride 106 mmol/L (98-107); Estimated Creatinine Clearance 53 ml/min; Glucose 122 mg/dl (70-99); Potassium 4.1 mmol/L (3.5-5.1); Sodium 140 mmol/L (135-145); Total Bilirubin 1.7 mg/dl (0.2-1.3); Total Protein 8.1 g/dl (6.3-8.2); eGFR > 60.00
== END 2023-10-28 13:34 | disposition home or self-care (01) | DRG 809 ==
LOC: 3 WEST ACU 15:46
PROVIDERS: Emergency Medicine; Internal Medicine Hematology & Oncology; Nurse Practitioner Acute Care; Nurse Practitioner Gerontology; Physician Assistant; Registered Nurse; ADMITTING PHYSICIAN Hospitalist; CONSULT PHYSICIAN Internal Medicine Hematology & Oncology; EMERGENCY PHYSICIAN Emergency Medicine; FAMILY PHYSICIAN Family Medicine
DX: D59.11 Warm autoimmune hemolytic anemia (principal); I48.19 Other persistent atrial fibrillation; I50.32 Chronic diastolic (congestive) heart failure; I25.10 Atherosclerotic heart disease of native coronary artery without angina pectoris; I11.0 Hypertensive heart disease with heart failure; Z79.01 Long term (current) use of anticoagulants
CPT/HCPCS: 71046; 76700; 80053; 80061; 82248; 82607; 82728; 82746; 82962; 83010; 83540; 83550; 83615; 83735; 83880; 84484; 85014; 85018; 85025; 85027; 85045; 85610; 85730; 86704; 86706; 86850; 86870; 86880; 86900; 86901; 86920; 86922; 87340; 87522; 93005; 99285; J9312; P9016

== ENCOUNTER → 2023-11-03 15:15 | Outpatient (REF) | payer OTHER, SELFPAY ==
[2023-11-03 12:57] LABS: ALT (SGPT) 30 U/L (0-50); AST (SGOT) 44 U/L (17-59); Albumin 4.2 g/dl (3.5-5.0); Alkaline Phosphatase 136 U/L (38-126); Blood Urea Nitrogen 21 mg/dl (9-20); Calcium 9.5 mg/dl (8.4-10.2); Carbon Dioxide 25 mmol/L (22-30); Chloride 103 mmol/L (98-107); Glucose 145 mg/dl (70-99); Potassium 4.4 mmol/L (3.5-5.1); Sodium 137 mmol/L (135-145); Total Bilirubin 1.2 mg/dl (0.2-1.3); Total Protein 7.3 g/dl (6.3-8.2); eGFR > 60.00
[2023-11-03 14:26] LABS: % Basophils 0.3 % (0-2); % Eosinophils 0.6 % (0-6); % Immature Granulocytes 0.6 % (0-0.5); % Lymphocytes 5.4 % (20.5-51.1); % Monocytes 5.1 % (1.7-9.3); Absolute Eosinophils 0.1 10^3/uL (0-0.7); Absolute Immature Granulocytes 0.1 10^3/uL (0-0.05); Absolute Lymphocytes 0.4 10^3/uL (1.2-3.4); Absolute Monocytes 0.4 10^3/uL (0.1-0.6); Absolute Neutrophils 6.8 10^3/uL (1.4-6.5); Hematocrit 28.3 % (39.0-52.0); Hemoglobin 9.1 g/dL (13.0-18.0); Mean Corp Hgb Conc. 32.2 g/dL (33.0-37.0); Mean Corpuscular Hgb 33.2 pg (27.0-31.0); Mean Corpuscular Volume 103.3 fL (80.0-94.0); Mean Platelet Volume 10.3 fL (7.4-10.4); Nucleated Red Blood Cells % 0 % (-); Platelet Count 219 10^3/uL (130-400); Red Blood Cell Count 2.74 10^6/uL (4.70-6.10); Red Cell Dist. Width 23.1 % (11.5-14.5); White Blood Cell Count 7.8 10^3/uL (4.8-10.8)
== END ==
LOC: OIDL 15:15
PROVIDERS: ATTENDING PHYSICIAN Internal Medicine Hematology & Oncology
DX: D59.10 Autoimmune hemolytic anemia, unspecified (principal)
CPT/HCPCS: 80053; 85025

== ENCOUNTER → 2023-11-17 16:00 | Outpatient (REF) | payer OTHER, SELFPAY ==
[2023-11-17 11:37] LABS: % Basophils 0.1 % (0-2); % Eosinophils 0.1 % (0-6); % Immature Granulocytes 1.6 % (0-0.5); % Lymphocytes 2.5 % (20.5-51.1); % Monocytes 2.7 % (1.7-9.3); Absolute Immature Granulocytes 0.2 10^3/uL (0-0.05); Absolute Lymphocytes 0.4 10^3/uL (1.2-3.4); Absolute Monocytes 0.4 10^3/uL (0.1-0.6); Absolute Neutrophils 13.3 10^3/uL (1.4-6.5); Hematocrit 25.7 % (39.0-52.0); Hemoglobin 8.2 g/dL (13.0-18.0); Mean Corp Hgb Conc. 31.9 g/dL (33.0-37.0); Mean Corpuscular Hgb 32.2 pg (27.0-31.0); Mean Corpuscular Volume 100.8 fL (80.0-94.0); Mean Platelet Volume 9.7 fL (7.4-10.4); Nucleated Red Blood Cells % 0 % (-); Platelet Count 277 10^3/uL (130-400); Red Blood Cell Count 2.55 10^6/uL (4.70-6.10); White Blood Cell Count 14.3 10^3/uL (4.8-10.8)
== END ==
LOC: OIDL 16:00
PROVIDERS: ATTENDING PHYSICIAN Nurse Practitioner Acute Care
DX: D59.10 Autoimmune hemolytic anemia, unspecified (principal)
CPT/HCPCS: 85025

== ENCOUNTER → 2024-02-29 15:20 | Outpatient (REF) | payer OTHER, SELFPAY | LOC: RAD 15:20 | PROVIDERS: ATTENDING PHYSICIAN Nurse Practitioner | DX: I10 Essential (primary) hypertension (principal) | CPT/HCPCS: 93971 ==

== ENCOUNTER → 2024-08-23 10:09 | Outpatient (REF) | payer OTHER, SELFPAY | LOC: RCS 10:09 | PROVIDERS: ATTENDING PHYSICIAN Nuclear Medicine Nuclear Cardiology; FAMILY PHYSICIAN Family Medicine | DX: I25.10 Atherosclerotic heart disease of native coronary artery without angina pectoris (principal); I10 Essential (primary) hypertension | CPT/HCPCS: 93306 ==

== ENCOUNTER → 2024-09-05 14:35 | Outpatient (REF) | payer OTHER, SELFPAY | LOC: HWRAD 14:35 | PROVIDERS: ATTENDING PHYSICIAN Physician Assistant Medical | DX: J40 Bronchitis, not specified as acute or chronic (principal); J44.9 Chronic obstructive pulmonary disease, unspecified | CPT/HCPCS: 71046 ==

== ENCOUNTER 2024-09-26 06:27 | Day surgery (SDC) | payer OTHER, SELFPAY | END 2024-09-26 10:21 | disposition home or self-care (01) | LOC: GI 06:27 | PROVIDERS: ATTENDING PHYSICIAN Specialist | DX: Z12.11 Encounter for screening for malignant neoplasm of colon (principal); Z86.0101 Personal history of adenomatous and serrated colon polyps; K57.30 Diverticulosis of large intestine without perforation or abscess without bleeding | CPT/HCPCS: G0105 ==

== ENCOUNTER → 2024-10-22 06:38 | Outpatient (REF) | payer OTHER, SELFPAY | LOC: PAVMRI 06:38 | PROVIDERS: ATTENDING PHYSICIAN Anesthesiology; FAMILY PHYSICIAN Family Medicine | DX: M54.16 Radiculopathy, lumbar region (principal) | CPT/HCPCS: 72148 ==

== ENCOUNTER → 2024-12-09 12:27 | Outpatient (REF) | payer OTHER, SELFPAY | LOC: HWRAD 12:27 | PROVIDERS: ATTENDING PHYSICIAN Family Medicine | DX: Z87.01 Personal history of pneumonia (recurrent) (principal) | CPT/HCPCS: 71046 ==

== ENCOUNTER → 2024-12-25 08:00 | Outpatient (REF) | payer OTHER, SELFPAY | LOC: HWRAD 08:00 | PROVIDERS: ATTENDING PHYSICIAN Nurse Practitioner Adult Health; FAMILY PHYSICIAN Family Medicine | DX: R93.89 Abnormal findings on diagnostic imaging of other specified body structures (principal) | CPT/HCPCS: 71250 ==